=== PATIENT | female | born 1950 | race Caucasian/White ===

== ENCOUNTER 2017-10-31 14:38 | Emergency (ER) | payer MEDICAID ==
[2017-10-31 15:30] LABS: ADD MAN DIFF? NO
[2017-10-31 15:32] LABS: BASOPHIL # 0.1 10^3/ul (0.0-0.1); BASOPHILS % 0.6 % (0.0-2.0); EOSINOPHILS # 0.1 10^3/ul (0.0-0.5); EOSINOPHILS % 1.2 % (0.0-7.0); HEMATOCRIT 37.1 % (37.0-47.0); HEMOGLOBIN 12.5 g/dl (12.0-16.0); LYMPHOCYTES # 2.4 10^3/ul (0.8-2.9); LYMPHOCYTES % 27.3 % (15.0-51.0); MEAN CORPUSCULAR HEMOGLOBIN 30.5 pg (29.0-33.0); MEAN CORPUSCULAR HGB CONC 33.7 g/dl (32.0-37.0); MEAN CORPUSCULAR VOLUME 90.5 fl (82.0-101.0); MEAN PLATELET VOLUME 9.4 fl (7.4-10.4); MONOCYTE # 0.5 10^3/ul (0.3-0.9); MONOCYTES % 5.6 % (0.0-11.0); NEUTROPHIL # 5.6 10^3/ul (1.6-7.5); NEUTROPHILS % 64.7 % (39.0-77.0); PLATELET COUNT 265 10^3/UL (140-415); RED CELL DISTRIBUTION WIDTH 12.4 % (11.5-14.5)
[2017-10-31 15:32] LABS: WHITE BLOOD COUNT 8.7 10^3/ul (4.8-10.8)
[2017-10-31] MEDS: MECLIZINE 12.5 MG TAB PO (15:44)
[2017-10-31] MEDS: LABETALOL HCL 20MG INJ IV ×2 (15:44→18:36)
[2017-10-31 15:47] LABS: INR 0.86; PROTIME 11.8 Sec (11.9-14.9); PT RATIO 0.9
[2017-10-31 15:48] LABS: PARTIAL THROMBOPLASTIN TIME 29.7 Sec (25.0-35.0)
[2017-10-31 16:04] LABS: ANION GAP 13 (8-16); BLOOD UREA NITROGEN 12 mg/dl (7-20); CALCIUM 8.7 mg/dl (8.4-10.2); CARBON DIOXIDE 29 mmol/L (21-31); CHLORIDE 100 mmol/L (97-110); CREATININE 0.73 mg/dl (0.44-1.00); GLUCOSE 293 mg/dl (70-220); POTASSIUM 3.5 mmol/L (3.5-5.1); SODIUM 138 mmol/L (135-144)
[2017-10-31 16:09] LABS: HEMOGLOBIN A1C 9.2 % (0-5.9)
[2017-10-31 16:16] LABS: TROPONIN-I 0.012 ng/ml (0.00-0.12)
== END 2017-10-31 19:40 | disposition home or self-care (01) ==
LOC: E/R 14:38
DX: R42 Dizziness and giddiness (principal); I10 Essential (primary) hypertension; E11.9 Type 2 diabetes mellitus without complications; R07.9 Chest pain, unspecified; Z79.84 Long term (current) use of oral hypoglycemic drugs
CPT/HCPCS: 36415; 70450; 71045; 80048; 83036; 84484; 85025; 85610; 85730; 93005; 96374; 96376; 99285-25

== ENCOUNTER 2017-11-17 14:33 | Emergency (ER) | payer SELFPAY, MEDICAID | END 2017-11-17 18:25 | disposition left against medical advice (07) | LOC: E/R 14:33 | DX: Z53.21 Procedure and treatment not carried out due to patient leaving prior to being seen by health care provider (principal) | CPT/HCPCS: 93005 ==

== ENCOUNTER 2017-11-20 08:59 | Emergency (ER) | payer MEDICAID ==
[2017-11-20] MEDS: KETOROLAC 30 MG INJ IM (09:47)
[2017-11-20 10:55] LABS: TROPONIN-I < 0.012 ng/ml (0.00-0.12)
== END 2017-11-20 12:48 | disposition home or self-care (01) ==
LOC: E/R 08:59
DX: S39.92XA Unspecified injury of lower back, initial encounter (principal); S43.402A Unspecified sprain of left shoulder joint, initial encounter; I10 Essential (primary) hypertension; E11.9 Type 2 diabetes mellitus without complications; X58.XXXA Exposure to other specified factors, initial encounter; Y92.9 Unspecified place or not applicable; Z79.84 Long term (current) use of oral hypoglycemic drugs
CPT/HCPCS: 29105; 84484; 93005; 96372; 99284-25

== ENCOUNTER 2018-10-04 11:44 | Emergency (ER) | payer MEDICAID ==
[2018-10-04 14:09] LABS: URINE BLOOD (Dip) POC Negative (NEGATIVE); URINE KETONES (Dip) POC Negative (NEGATIVE); URINE LEUKOCYTE EST (Dip) POC Negative (NEGATIVE); URINE NITRITE (Dip) POC Negative (NEGATIVE); URINE TOTAL PROTEIN POC 1+ (NEGATIVE)
[2018-10-04 14:09] LABS: URINE PH (Dip) POC 5.5 (5.0-8.5)
[2018-10-04 14:14] LABS: ADD MAN DIFF? NO
[2018-10-04 14:26] LABS: WHITE BLOOD COUNT 11.1 10^3/ul (4.8-10.8)
[2018-10-04 14:26] LABS: BASOPHIL # 0.1 10^3/ul (0.0-0.1); BASOPHILS % 0.7 % (0.0-2.0); EOSINOPHILS # 0.1 10^3/ul (0.0-0.5); EOSINOPHILS % 1.2 % (0.0-7.0); HEMATOCRIT 41.5 % (37.0-47.0); HEMOGLOBIN 13.6 g/dl (12.0-16.0); LYMPHOCYTES # 3.3 10^3/ul (0.8-2.9); LYMPHOCYTES % 29.9 % (15.0-51.0); MEAN CORPUSCULAR HEMOGLOBIN 30.4 pg (29.0-33.0); MEAN CORPUSCULAR HGB CONC 32.8 g/dl (32.0-37.0); MEAN CORPUSCULAR VOLUME 92.6 fl (82.0-101.0); MEAN PLATELET VOLUME 9.6 fl (7.4-10.4); MONOCYTE # 0.6 10^3/ul (0.3-0.9); MONOCYTES % 5.3 % (0.0-11.0); NEUTROPHILS % 62.5 % (39.0-77.0); PLATELET COUNT 278 10^3/UL (140-415); RED BLOOD COUNT 4.48 10^6/ul (4.20-5.40); RED CELL DISTRIBUTION WIDTH 13.1 % (11.5-14.5)
[2018-10-04 14:45] LABS: INR 0.85; PROTIME 11.7 Sec (11.9-14.9); PT RATIO 0.9
[2018-10-04 14:46] LABS: PARTIAL THROMBOPLASTIN TIME 30.7 Sec (23.0-35.0)
[2018-10-04 14:47] LABS: ANION GAP 12 (5-13); BLOOD UREA NITROGEN 15 mg/dl (7-20); CALCIUM 9.5 mg/dl (8.4-10.2); CARBON DIOXIDE 29 mmol/L (21-31); CHLORIDE 101 mmol/L (97-110); CREATININE 0.72 mg/dl (0.44-1.00); Estimated GFR > 60 mL/min (>60); GLUCOSE 129 mg/dl (70-220); POTASSIUM 3.1 mmol/L (3.5-5.1); SODIUM 142 mmol/L (135-144)
[2018-10-04 14:59] LABS: TROPONIN-I < 0.012 ng/ml (0.000-0.120)
[2018-10-04] MEDS: POTASSIUM CHLORIDE (SR) 20 MEQ TAB PO (15:31)
[2018-10-04] MEDS: POTASSIUM CHLORIDE 30 MEQ in SOD CHLORIDE 0.9% 1,000 ML IV (16:17)
== END 2018-10-04 18:26 | disposition home or self-care (01) ==
LOC: FTE 11:44
DX: M62.81 Muscle weakness (generalized) (principal); I10 Essential (primary) hypertension; E11.9 Type 2 diabetes mellitus without complications; E87.6 Hypokalemia; R51 Headache; Z79.84 Long term (current) use of oral hypoglycemic drugs
CPT/HCPCS: 36415; 80048; 81003; 84484; 85025; 85610; 85730; 93005; 99285-25

== ENCOUNTER 2019-03-21 09:23 | Inpatient (IN) | payer MEDICAID ==
[2019-03-21] MEDS: ONDANSETRON 4 MG INJ IV (10:52)
[2019-03-21] MEDS: morphine 4 MG/ML VIAL IV (10:52)
[2019-03-21 10:56] LABS: ADD MAN DIFF? NO
[2019-03-21 11:07] LABS: BASOPHILS % 0.2 % (0.0-2.0); EOSINOPHILS # 0.1 10^3/ul (0.0-0.5); EOSINOPHILS % 0.6 % (0.0-7.0); HEMATOCRIT 40.4 % (37.0-47.0); HEMOGLOBIN 13.2 g/dl (12.0-16.0); LYMPHOCYTES # 1.8 10^3/ul (0.8-2.9); LYMPHOCYTES % 12.6 % (15.0-51.0); MEAN CORPUSCULAR HEMOGLOBIN 30.3 pg (29.0-33.0); MEAN CORPUSCULAR HGB CONC 32.7 g/dl (32.0-37.0); MEAN CORPUSCULAR VOLUME 92.7 fl (82.0-101.0); MEAN PLATELET VOLUME 9.8 fl (7.4-10.4); MONOCYTE # 0.7 10^3/ul (0.3-0.9); NEUTROPHIL # 11.4 10^3/ul (1.6-7.5); NEUTROPHILS % 81.2 % (39.0-77.0); PLATELET COUNT 290 10^3/UL (140-415); RED BLOOD COUNT 4.36 10^6/ul (4.20-5.40); RED CELL DISTRIBUTION WIDTH 13.5 % (11.5-14.5)
[2019-03-21 11:12] LABS: ADD UMIC YES; UR ASCORBIC ACID 20 mg/dL (NEGATIVE); UR BACTERIA FEW /HPF (NONE SEEN); UR BILIRUBIN (Dip) NEGATIVE (NEGATIVE); UR BLOOD (Dip) NEGATIVE (NEGATIVE); UR CLARITY SLIGHTLY CLOUDY (CLEAR); UR COLOR AMBER (YELLOW); UR GLUCOSE (Dip) 3+ mg/dL (NEGATIVE); UR GRANULAR CAST FEW /HPF (NONE SEEN); UR HYALINE CAST FEW /HPF (NONE SEEN); UR KETONES (Dip) TRACE mg/dL (NEGATIVE); UR LEUKOCYTE ESTERASE (Dip) 1+ Leu/ul (NEGATIVE); UR MUCUS MODERATE /HPF (NONE SEEN); UR NITRITE (Dip) NEGATIVE (NEGATIVE); UR RBC 2 /HPF (0-5); UR SPECIFIC GRAVITY (Dip) 1.023 (1.003-1.030); UR SQUAMOUS EPITHELIAL CELL FEW /HPF (FEW); UR TOTAL PROTEIN (Dip) 2+ mg/dl (NEGATIVE); UR UROBILINOGEN (Dip) 2+ mg/dL (NEGATIVE); UR WBC 17 /HPF (0-5)
[2019-03-21 11:16] LABS: ALANINE AMINOTRANSFERASE 6 IU/L (13-69); ALBUMIN 4.2 g/dl (3.3-4.9); ALBUMIN/GLOBULIN RATIO 0.91; ALKALINE PHOSPHATASE 135 IU/L (42-121); ANION GAP 12 (5-13); ASPARTATE AMINO TRANSFERASE 22 IU/L (15-46); BILIRUBIN,INDIRECT 0.9 mg/dl (0-1.1); BILIRUBIN,TOTAL 0.9 mg/dl (0.2-1.3); BLOOD UREA NITROGEN 18 mg/dl (7-20); CALCIUM 9.3 mg/dl (8.4-10.2); CARBON DIOXIDE 26 mmol/L (21-31); CHLORIDE 103 mmol/L (97-110); CREATININE 0.93 mg/dl (0.44-1.00); Estimated GFR 60 mL/min (>60); GLUCOSE 168 mg/dl (70-220); LIPASE 45 U/L (23-300); POTASSIUM 3.1 mmol/L (3.5-5.1); SODIUM 141 mmol/L (135-144); TOTAL PROTEIN 8.8 g/dl (6.1-8.1)
[2019-03-21] MEDS: AMPICILLIN/SULB 3 GM/NS (PMX) 100 ML IVPB (11:39)
[2019-03-21] MEDS ORDERED: ONDANSETRON 4 MG INJ IV (12:00)
[2019-03-21] MEDS ORDERED: ACETAMINOPHEN 325 MG TAB PO (12:00)
[2019-03-21 12:11] LABS: INR 0.92; PROTIME 12.5 Sec (11.9-14.9)
[2019-03-21 12:12] LABS: PARTIAL THROMBOPLASTIN TIME 35.6 Sec (23.0-35.0)
[2019-03-21 12:29] LABS: TROPONIN-I < 0.012 ng/ml (0.000-0.120)
[2019-03-21] MEDS ORDERED: NACL 0.9% 3 ML SYG IV (13:00)
[2019-03-21] MEDS: PIPER-TAZO 3.375 GM IV (PMX) 100 ML IVPB ×2 (13:55→21:30)
[2019-03-21] MEDS ORDERED: GLUCAGON 1 MG INJ IM (15:00)
[2019-03-21] MEDS ORDERED: GLUCOSE GEL 15 GRAM TUBE BUCCAL (15:00)
[2019-03-21] MEDS ORDERED: GLUCOSE GEL 15 GRAM TUBE PO ×2 (15:00)
[2019-03-21] MEDS ORDERED: DEXTROSE 50% 50 ML SYRINGE IV (15:00)
[2019-03-21 15:22] LABS: LACTIC ACID 1.3 mmol/L (0.5-2.0)
[2019-03-21] MEDS: LACTATED RINGER'S 1,000 ML IV (16:23)
[2019-03-21] MEDS: INSULIN ASPART [NOVOLOG] 3 ML PEN SC ×2 (17:43→20:31)
[2019-03-21 17:48] LABS: LACTIC ACID 0.8 mmol/L (0.5-2.0)
[2019-03-21] MEDS: INSULIN GLARGINE [LANTus] (100 UNITS/ML) SYG SC (20:31)
[2019-03-21] MEDS ORDERED: VITAMIN A & D 5 GM OINT PACKET TOP (21:00)
[2019-03-22] MEDS: LACTATED RINGER'S 1,000 ML IV ×2 (04:57→20:44)
[2019-03-22 05:42] LABS: ADD MAN DIFF? NO
[2019-03-22 05:50] LABS: BASOPHILS % 0.2 % (0.0-2.0); EOSINOPHILS # 0.3 10^3/ul (0.0-0.5); EOSINOPHILS % 3.1 % (0.0-7.0); HEMATOCRIT 34.9 % (37.0-47.0); HEMOGLOBIN 11.3 g/dl (12.0-16.0); LYMPHOCYTES # 1.8 10^3/ul (0.8-2.9); MEAN CORPUSCULAR HEMOGLOBIN 30.1 pg (29.0-33.0); MEAN CORPUSCULAR HGB CONC 32.4 g/dl (32.0-37.0); MEAN CORPUSCULAR VOLUME 93.1 fl (82.0-101.0); MONOCYTE # 0.9 10^3/ul (0.3-0.9); MONOCYTES % 8.6 % (0.0-11.0); NEUTROPHIL # 7.4 10^3/ul (1.6-7.5); NEUTROPHILS % 70.7 % (39.0-77.0); PLATELET COUNT 272 10^3/UL (140-415); RED BLOOD COUNT 3.75 10^6/ul (4.20-5.40); RED CELL DISTRIBUTION WIDTH 13.2 % (11.5-14.5)
[2019-03-22 05:50] LABS: WHITE BLOOD COUNT 10.5 10^3/ul (4.8-10.8)
[2019-03-22 06:24] LABS: ALANINE AMINOTRANSFERASE 21 IU/L (13-69); ALBUMIN 3.3 g/dl (3.3-4.9); ALBUMIN/GLOBULIN RATIO 0.94; ALKALINE PHOSPHATASE 145 IU/L (42-121); ANION GAP 8 (5-13); ASPARTATE AMINO TRANSFERASE 28 IU/L (15-46); BILIRUBIN,INDIRECT 0.7 mg/dl (0-1.1); BILIRUBIN,TOTAL 0.7 mg/dl (0.2-1.3); BLOOD UREA NITROGEN 25 mg/dl (7-20); CALCIUM 8.3 mg/dl (8.4-10.2); CARBON DIOXIDE 27 mmol/L (21-31); CHLORIDE 106 mmol/L (97-110); CREATININE 0.82 mg/dl (0.44-1.00); Estimated GFR > 60 mL/min (>60); GLUCOSE 105 mg/dl (70-220); POTASSIUM 3.2 mmol/L (3.5-5.1); SODIUM 141 mmol/L (135-144); TOTAL PROTEIN 6.8 g/dl (6.1-8.1)
[2019-03-22] MEDS: PIPER-TAZO 3.375 GM IV (PMX) 100 ML IVPB ×3 (06:54→21:33)
[2019-03-22] MEDS: INSULIN ASPART [NOVOLOG] 3 ML PEN SC ×4 (07:50→20:30)
[2019-03-22] MEDS: ENOXAPARIN 30 MG/0.3 ML SYG SC (08:22)
[2019-03-22 09:12] LABS: HEMOGLOBIN A1C 7.6 % (0-5.9)
[2019-03-22] MEDS: INSULIN GLARGINE [LANTus] (100 UNITS/ML) SYG SC (20:00)
[2019-03-22] MEDS ORDERED: SEVOFLURANE 15 MIN (22:00)
[2019-03-22] MEDS ORDERED: ROPIVACAINE 0.5 % 30 ML VIAL (22:07)
[2019-03-22] MEDS ORDERED: LIDOCAINE 2% (SDV) 5 ML INJ (22:07)
[2019-03-22] MEDS ORDERED: PROPOFOL 20 ML (22:07)
[2019-03-22] MEDS ORDERED: ROCURONIUM 50 MG INJ (22:07)
[2019-03-22] MEDS ORDERED: SUCCINYLCHOLINE CHLORIDE 100 MG/5 ML SYG IV (22:07)
[2019-03-22] MEDS: DEXTROSE 50% 50 ML SYRINGE IV (22:24)
[2019-03-22] MEDS ORDERED: MIDAZOLAM 1 MG/ML 2 ML INJ (22:31)
[2019-03-22] MEDS ORDERED: FAMOTIDINE 20 MG INJ (23:07)
[2019-03-22] MEDS ORDERED: ONDANSETRON 4 MG INJ (23:07)
[2019-03-22] MEDS: BUPIVACAINE 0.25%/EPI (SDV) 30 ML INJ (23:08)
[2019-03-22] MEDS: LIDOCAINE 1% (MPF) 30 ML INJ (23:08)
[2019-03-22] MEDS ORDERED: FENTAnyl 50 MCG/ML VIAL (23:11)
[2019-03-22] MEDS ORDERED: LABETALOL HCL 20MG INJ (23:13)
[2019-03-23] MEDS ORDERED: NEOSTIGMINE 3 MG/3 ML SYRINGE ×2 (00:50)
[2019-03-23] MEDS ORDERED: GLYCOPYRROLATE 0.4 MG INJ ×2 (00:50)
[2019-03-23] MEDS ORDERED: hydrALAzine 20 MG INJ (01:07)
[2019-03-23] MEDS ORDERED: MEPERIDINE 25 MG INJ IV (01:30)
[2019-03-23] MEDS ORDERED: PROCHLORPERAZINE 10 MG INJ IV (01:30)
[2019-03-23] MEDS ORDERED: LABETALOL HCL 20MG INJ IV ×2 (01:30→11:09)
[2019-03-23] MEDS ORDERED: HYDROmorphONE 1 MG/5 ML IV SYRINGE IV ×2 (01:30)
[2019-03-23] MEDS ORDERED: DIPHENHYDRAMINE 50 MG INJ IV (01:30)
[2019-03-23] MEDS ORDERED: ACETAMINOPHEN 325 MG TAB PO (01:30)
[2019-03-23] MEDS ORDERED: hydrALAzine 20 MG INJ IV (01:30)
[2019-03-23] MEDS: ONDANSETRON 4 MG INJ IV (01:50)
[2019-03-23] MEDS: FENTAnyl 50 MCG/ML VIAL IV (01:51)
[2019-03-23] MEDS: D5W-0.45 NACL + KCL 20 MEQ 1,000 ML IV ×2 (02:34→10:42)
[2019-03-23] MEDS: PIPER-TAZO 3.375 GM IV (PMX) 100 ML IVPB ×3 (06:05→17:45)
[2019-03-23] MEDS: HYDROCODONE/APAP (5/325) TAB PO (06:24)
[2019-03-23] MEDS: LACTATED RINGER'S 1,000 ML IV ×2 (08:00→22:17)
[2019-03-23] MEDS: VERAPAMIL 120 MG TAB PO ×2 (08:34→21:26)
[2019-03-23] MEDS: AMLODIPINE 2.5 MG TAB PO (08:34)
[2019-03-23] MEDS: ENOXAPARIN 30 MG/0.3 ML SYG SC (08:36)
[2019-03-23] MEDS: INSULIN ASPART [NOVOLOG] 3 ML PEN SC ×4 (08:37→21:00)
[2019-03-23 09:01] LABS: ADD MAN DIFF? NO
[2019-03-23 09:08] LABS: WHITE BLOOD COUNT 13.7 10^3/ul (4.8-10.8)
[2019-03-23 09:08] LABS: BASOPHILS % 0.2 % (0.0-2.0); HEMATOCRIT 31.5 % (37.0-47.0); LYMPHOCYTES # 1.2 10^3/ul (0.8-2.9); LYMPHOCYTES % 8.4 % (15.0-51.0); MEAN CORPUSCULAR HEMOGLOBIN 30.2 pg (29.0-33.0); MEAN CORPUSCULAR HGB CONC 31.7 g/dl (32.0-37.0); MEAN CORPUSCULAR VOLUME 95.2 fl (82.0-101.0); MEAN PLATELET VOLUME 9.8 fl (7.4-10.4); MONOCYTE # 0.6 10^3/ul (0.3-0.9); MONOCYTES % 4.1 % (0.0-11.0); NEUTROPHIL # 11.9 10^3/ul (1.6-7.5); NEUTROPHILS % 86.9 % (39.0-77.0); PLATELET COUNT 259 10^3/UL (140-415); RED BLOOD COUNT 3.31 10^6/ul (4.20-5.40); RED CELL DISTRIBUTION WIDTH 13.3 % (11.5-14.5)
[2019-03-23 09:23] LABS: ALANINE AMINOTRANSFERASE 28 IU/L (13-69); ALBUMIN/GLOBULIN RATIO 0.96; ALKALINE PHOSPHATASE 134 IU/L (42-121); ANION GAP 10 (5-13); ASPARTATE AMINO TRANSFERASE 34 IU/L (15-46); BILIRUBIN,INDIRECT 0.5 mg/dl (0-1.1); BILIRUBIN,TOTAL 0.5 mg/dl (0.2-1.3); BLOOD UREA NITROGEN 16 mg/dl (7-20); CALCIUM 7.7 mg/dl (8.4-10.2); CARBON DIOXIDE 21 mmol/L (21-31); CHLORIDE 108 mmol/L (97-110); CREATININE 0.68 mg/dl (0.44-1.00); Estimated GFR > 60 mL/min (>60); GLUCOSE 210 mg/dl (70-220); MAGNESIUM 1.7 mg/dl (1.7-2.5); POTASSIUM 3.3 mmol/L (3.5-5.1); SODIUM 139 mmol/L (135-144); TOTAL PROTEIN 6.1 g/dl (6.1-8.1)
[2019-03-23] MEDS ORDERED: SUCCINYLCHOLINE CHLORIDE 100 MG/5 ML SYG IV (11:09)
[2019-03-23] MEDS: IBUPROFEN 800 MG TAB PO (12:34)
[2019-03-23] MEDS: DOXAZOSIN 4 MG TAB PO (21:24)
[2019-03-23] MEDS: ATORVASTATIN 80 MG TAB PO (21:26)
[2019-03-23] MEDS: INSULIN GLARGINE [LANTus] (100 UNITS/ML) SYG SC (21:32)
[2019-03-23] MEDS: DIMETHICONE STICK TOP (21:34)
[2019-03-24] MEDS: PIPER-TAZO 3.375 GM IV (PMX) 100 ML IVPB ×2 (00:11→06:48)
[2019-03-24 05:49] LABS: ADD MAN DIFF? NO
[2019-03-24 06:05] LABS: BASOPHILS % 0.3 % (0.0-2.0); EOSINOPHILS # 0.2 10^3/ul (0.0-0.5); EOSINOPHILS % 2.1 % (0.0-7.0); HEMATOCRIT 28.6 % (37.0-47.0); HEMOGLOBIN 9.1 g/dl (12.0-16.0); LYMPHOCYTES % 21.9 % (15.0-51.0); MEAN CORPUSCULAR HEMOGLOBIN 30.2 pg (29.0-33.0); MEAN CORPUSCULAR HGB CONC 31.8 g/dl (32.0-37.0); MEAN PLATELET VOLUME 10.1 fl (7.4-10.4); MONOCYTE # 0.7 10^3/ul (0.3-0.9); MONOCYTES % 7.4 % (0.0-11.0); NEUTROPHIL # 6.1 10^3/ul (1.6-7.5); PLATELET COUNT 271 10^3/UL (140-415); RED BLOOD COUNT 3.01 10^6/ul (4.20-5.40); RED CELL DISTRIBUTION WIDTH 13.4 % (11.5-14.5)
[2019-03-24 06:31] LABS: CHOL/HDL RATIO 3.1 RATIO; CHOLESTEROL 119 mg/dl (100-200); HDL CHOLESTEROL 38 mg/dl (33-92); LDL CHOLESTEROL,CALCULATED 57 mg/dl; MAGNESIUM 1.9 mg/dl (1.7-2.5); TRIGLYCERIDES 119 mg/dl (0-149)
[2019-03-24 06:31] LABS: PHOSPHORUS 3.6 mg/dl (2.5-4.9)
[2019-03-24 06:32] LABS: ALANINE AMINOTRANSFERASE 27 IU/L (13-69); ALBUMIN 2.8 g/dl (3.3-4.9); ALBUMIN/GLOBULIN RATIO 0.84; ALKALINE PHOSPHATASE 122 IU/L (42-121); ANION GAP 7 (5-13); ASPARTATE AMINO TRANSFERASE 24 IU/L (15-46); BILIRUBIN,INDIRECT 0.4 mg/dl (0-1.1); BILIRUBIN,TOTAL 0.4 mg/dl (0.2-1.3); BLOOD UREA NITROGEN 13 mg/dl (7-20); CALCIUM 7.8 mg/dl (8.4-10.2); CARBON DIOXIDE 25 mmol/L (21-31); CHLORIDE 111 mmol/L (97-110); Estimated GFR > 60 mL/min (>60); GLUCOSE 121 mg/dl (70-220); SODIUM 143 mmol/L (135-144); TOTAL PROTEIN 6.1 g/dl (6.1-8.1)
[2019-03-24] MEDS: INSULIN ASPART [NOVOLOG] 3 ML PEN SC ×2 (07:50)
[2019-03-24] MEDS: VERAPAMIL 120 MG TAB PO (08:47)
[2019-03-24] MEDS: AMLODIPINE 2.5 MG TAB PO (08:47)
[2019-03-24] MEDS: POTASSIUM CHLORIDE (SR) 20 MEQ TAB PO (08:48)
[2019-03-24] MEDS: ENOXAPARIN 30 MG/0.3 ML SYG SC (08:49)
[2019-03-24] MEDS: LACTATED RINGER'S 1,000 ML IV (10:40)
== END 2019-03-24 11:10 | disposition home or self-care (01) | DRG 419 ==
LOC: E/R 09:23 → MS1 11:54
PROC: 0FT44ZZ Resection of Gallbladder, Percutaneous Endoscopic Approach (ICD-10-PCS; principal; 2019-03-22 22:33)
DX: K80.00 Calculus of gallbladder with acute cholecystitis without obstruction (principal); E11.8 Type 2 diabetes mellitus with unspecified complications; E66.9 Obesity, unspecified; Z68.30 Body mass index [BMI] 30.0-30.9, adult; E78.5 Hyperlipidemia, unspecified; I10 Essential (primary) hypertension; Z79.84 Long term (current) use of oral hypoglycemic drugs; E78.00 Pure hypercholesterolemia, unspecified; Z87.891 Personal history of nicotine dependence
CPT/HCPCS: 36415; 71045; 74176; 76705; 80053; 80061; 81001; 82962; 83036; 83605; 83690; 83735; 84100; 84484; 85025; 85610; 85730; 87040-91; 88304; 93005; 96374; 96375; 99285-25